=== PATIENT | male | born 1940 | race Caucasian/White ===

== ENCOUNTER 2024-06-19 19:06 | Inpatient (IN) | payer BC, MEDICARE ==
[~2024-06-19] VITALS: Ht 177.8 cm; Wt 99.4 kg
[2024-06-19] MEDS: 0.9% SODIUM CHLORIDE 10 ML SYRINGE IVP PRN (19:41)
[2024-06-19] MEDS: CefTRIAXone 1 GM/DEXTROSE 50 ML IV ONE (19:44)
[2024-06-19] MEDS: SODIUM CHLORIDE 0.9% 1,800 ML IV ONE (19:45)
[2024-06-19 19:56] LABS: BASOPHILS % (AUTO) 0.3 % (0.0-2.0); EOSINOPHILS % (AUTO) 0.7 % (1.0-6.0); HEMATOCRIT 44.9 % (41-53); HEMOGLOBIN 14.6 g/dL (13.5-17.5); LYMPHOCYTES # (AUTO) 1.1 K/uL (1.0-4.8); LYMPHOCYTES % (AUTO) 8.8 % (22.0-44.0); MEAN CORPUSCULAR HEMOGLOBIN 30.6 pg (26.0-34.0); MEAN CORPUSCULAR HGB CONC 32.6 G/dL (31.0-37.0); MEAN CORPUSCULAR VOLUME 94 fL (80-100); MONOCYTES # (AUTO) 1.6 K/uL (0.1-1.0); MONOCYTES % (AUTO) 13.4 % (2.0-9.0); NEUTROPHILS # (AUTO) 9.3 K/uL (1.8-7.7); NEUTROPHILS % (AUTO) 76.8 % (40.0-70.0); PLATELET COUNT (AUTO) 191 K/uL (150-450); RED BLOOD CELL COUNT(AUTO) 4.79 MIL/uL (4.50-5.90); RED CELL DISTRIBUTION WIDTH 14.2 % (11.5-14.5); WHITE BLOOD COUNT (AUTO) 12.1 K/uL (4.5-11.0)
[2024-06-19 20:05] LABS: ANION GAP 11 mmol/L (8-16); CALCIUM, TOTAL 9.4 mg/dL (8.8-10.5); CARBON DIOXIDE 27 mmol/L (22-29); CHLORIDE 102 mmol/L (98-107); CREATININE 2.42 mg/dL (0.60-1.30); GLOMERULAR FILTR. RATE CALC 26 mL/min (>60); GLUCOSE,RANDOM 112 mg/dL (70-110); POTASSIUM 4.4 mmol/L (3.5-5.1); PROTHROMBIN TIME 10.9 SEC (9.4-11.6); SODIUM SERUM 140 mmol/L (136-145); UREA NITROGEN, BLOOD 29 mg/dL (7-18)
[2024-06-19 20:11] LABS: ALANINE AMINOTRANSFERASE 29 U/L (12-78); ALBUMIN 3.7 g/dL (3.4-5.0); ALKALINE PHOSPHATASE 81 U/L (46-116); ASPARTATE AMINOTRANSFERASE 20 U/L (15-37); BILIRUBIN,TOTAL 0.8 mg/dL (0.1-1.0); TOTAL PROTEIN, SERUM 8.5 g/dL (6.4-8.2)
[2024-06-19 20:12] LABS: TROPONIN I-HIGH SENSITIVITY 18 ng/L (<76)
[2024-06-19 20:13] LABS: LACTIC ACID 0.8 mmol/L (0.4-2.0)
[2024-06-19 20:48] LABS: APPEARANCE,URINE CLEAR (CLEAR); BILIRUBIN,URINE NEGATIVE (NEGATIVE); COLOR,URINE LIGHT YELLOW (YELLOW); GLUCOSE, URINE (UA) NEGATIVE (NEGATIVE); KETONES,URINE NEGATIVE (NEGATIVE); LEUKOCYTE ESTERASE ,URINE NEGATIVE (NEGATIVE); NITRATE,URINE NEGATIVE (NEGATIVE); OCCULT BLOOD,URINE TRACE (NEGATIVE); PH,URINE 5.5 (5.0-8.0); PROTEIN,URINE 100-200,SEE CONFIRM mg/dL (NEGATIVE); SPECIFIC GRAVITIY, URINE 1.022 (1.003-1.030); UROBILINOGEN,URINE <=1.0 mg/dL (<=1.0)
[2024-06-19 21:21] LABS: BACTERIA,URINE None Seen /HPF (None Seen); RBC,URINE 0-2 /HPF (0-2); SULFOSALICYLIC ACID,URINE 3+ (Negative); WBC,URINE None Seen /HPF (0-5)
[2024-06-19 21:23] LABS: COVID AG,FIA SOURCE NASAL SWAB
[2024-06-19 21:48] LABS: INFLUENZA TYPE A NEGATIVE FOR TYPE A (NEGATIVE); INFLUENZA TYPE B NEGATIVE FOR TYPE B (NEGATIVE)
[2024-06-19 22:14] LABS: SARS-COV2 (COVID) ANTIGEN,FIA Positive (Negative)
[2024-06-19] MEDS ORDERED: HYDROCODONE/ACETAMINOPHEN 5-325 MG TABLET PO PRN (22:30)
[2024-06-19] MEDS ORDERED: BISACODYL 10 MG RECTAL RECTAL SUPPOSITORY PR PRN (22:30)
[2024-06-19] MEDS ORDERED: MAGNESIUM HYDROXIDE SUSPENSION 30 ML UDCUP PO PRN (22:30)
[2024-06-19] MEDS ORDERED: ZOLPIDEM TARTRATE 5 MG TABLET PO PRN (22:30)
[2024-06-19] MEDS ORDERED: ONDANSETRON HCL 4 MG/2 ML VIAL IVP PRN (22:30)
[2024-06-19] MEDS: AZITHROMYCIN 500 MG/NS 250 ML IV ONE (22:55)
[2024-06-19] MEDS: REMDESIVIR 200 MG in SODIUM CHLORIDE 0.9% 250 ML IV ONE (23:02)
[2024-06-19] MEDS: HEPARIN SODIUM,PORCINE 5,000 UNITS/ML VIAL SQ SCH (23:57)
[2024-06-20] VITALS (7 sets, daily range): BP systolic 126–159; BP diastolic 58–91; PULSE 57–81; RESP 17–19; TEMP 97.8–100.1; O2SAT 95–96
[2024-06-20] MEDS: ACETAMINOPHEN 325 MG TABLET PO PRN (04:40)
[2024-06-20 07:46] LABS: BASOPHILS % (AUTO) 0.3 % (0.0-2.0); EOSINOPHILS % (AUTO) 0.2 % (1.0-6.0); HEMOGLOBIN 13.1 g/dL (13.5-17.5); LYMPHOCYTES # (AUTO) 0.6 K/uL (1.0-4.8); LYMPHOCYTES % (AUTO) 5.6 % (22.0-44.0); MEAN CORPUSCULAR HEMOGLOBIN 31.5 pg (26.0-34.0); MEAN CORPUSCULAR HGB CONC 33.6 G/dL (31.0-37.0); MEAN CORPUSCULAR VOLUME 94 fL (80-100); MONOCYTES # (AUTO) 1.5 K/uL (0.1-1.0); MONOCYTES % (AUTO) 13.1 % (2.0-9.0); NEUTROPHILS # (AUTO) 9.1 K/uL (1.8-7.7); NEUTROPHILS % (AUTO) 80.8 % (40.0-70.0); PLATELET COUNT (AUTO) 142 K/uL (150-450); RED BLOOD CELL COUNT(AUTO) 4.17 MIL/uL (4.50-5.90); RED CELL DISTRIBUTION WIDTH 14.1 % (11.5-14.5); WHITE BLOOD COUNT (AUTO) 11.3 K/uL (4.5-11.0)
[2024-06-20 07:52] LABS: CALCIUM, TOTAL 8.5 mg/dL (8.8-10.5); CREATININE 2.17 mg/dL (0.60-1.30); POTASSIUM 4.1 mmol/L (3.5-5.1)
[2024-06-20] MEDS: PANTOPRAZOLE SODIUM 40 MG DR TABLET PO SCH (08:33)
[2024-06-20] MEDS: DOCUSATE SODIUM 100 MG CAPSULE PO SCH (08:33)
[2024-06-20] MEDS: DEXAMETHASONE 4 MG TABLET PO SCH (08:33)
[2024-06-20] MEDS ORDERED: SODIUM CHLORIDE 0.9% 1,000 ML ONE (21:00)
[2024-06-20] MEDS: REMDESIVIR 100 MG in SODIUM CHLORIDE 0.9% 250 ML IV SCH (21:02)
[2024-06-21] VITALS: BP 147/82; PULSE 66; RESP 16; TEMP 98.2; O2SAT 96
[2024-06-21 04:00] VITALS: BP 125/69; PULSE 59; RESP 18; TEMP 97.7; O2SAT 95
[2024-06-21 07:05] LABS: BASOPHILS % (AUTO) 0.1 % (0.0-2.0); EOSINOPHILS % (AUTO) 0 % (1.0-6.0); HEMATOCRIT 40.9 % (41-53); HEMOGLOBIN 13.2 g/dL (13.5-17.5); LYMPHOCYTES # (AUTO) 1.5 K/uL (1.0-4.8); LYMPHOCYTES % (AUTO) 9.7 % (22.0-44.0); MEAN CORPUSCULAR HEMOGLOBIN 30.3 pg (26.0-34.0); MEAN CORPUSCULAR HGB CONC 32.2 G/dL (31.0-37.0); MEAN CORPUSCULAR VOLUME 94 fL (80-100); MONOCYTES # (AUTO) 1.1 K/uL (0.1-1.0); MONOCYTES % (AUTO) 7.4 % (2.0-9.0); NEUTROPHILS # (AUTO) 12.5 K/uL (1.8-7.7); NEUTROPHILS % (AUTO) 82.8 % (40.0-70.0); PLATELET COUNT (AUTO) 172 K/uL (150-450); RED BLOOD CELL COUNT(AUTO) 4.35 MIL/uL (4.50-5.90); WHITE BLOOD COUNT (AUTO) 15.1 K/uL (4.5-11.0)
[2024-06-21 07:23] LABS: ALBUMIN 2.8 g/dL (3.4-5.0); BILIRUBIN,TOTAL 0.4 mg/dL (0.1-1.0); CREATININE 1.78 mg/dL (0.60-1.30); POTASSIUM 5.2 mmol/L (3.5-5.1); TOTAL PROTEIN, SERUM 6.8 g/dL (6.4-8.2)
[2024-06-21 08:00] VITALS: BP 154/74; PULSE 58; RESP 18; TEMP 97.8; O2SAT 98
[2024-06-21 12:00] VITALS: BP 160/92; PULSE 62; RESP 18; TEMP 97.6; O2SAT 98
[2024-06-21] MEDS: AmLODIPine BESYLATE 5 MG TABLET PO SCH (13:12)
[2024-06-21] MEDS: SODIUM POLYSTYRENE SULFONATE 15 GM/60 ML SUSPENSION BOTTLE PO ONE (13:12)
[2024-06-21 16:00] VITALS: BP 150/70; PULSE 62; RESP 18; TEMP 97.9; O2SAT 97
[2024-06-21 20:00] VITALS: BP 155/68; PULSE 73; RESP 18; TEMP 98.1; O2SAT 96
[2024-06-22] VITALS: BP 149/80; PULSE 64; RESP 16; TEMP 98.4; O2SAT 96
[2024-06-22 04:00] VITALS: BP 139/75; PULSE 69; RESP 17; TEMP 97.9; O2SAT 95
[2024-06-22 06:16] LABS: HEMATOCRIT 40.1 % (41-53); HEMOGLOBIN 13.2 g/dL (13.5-17.5); MEAN CORPUSCULAR VOLUME 94 fL (80-100); PLATELET COUNT (AUTO) 178 K/uL (150-450); RED BLOOD CELL COUNT(AUTO) 4.26 MIL/uL (4.50-5.90); RED CELL DISTRIBUTION WIDTH 13.7 % (11.5-14.5); WHITE BLOOD COUNT (AUTO) 19.9 K/uL (4.5-11.0)
[2024-06-22 07:30] LABS: ALBUMIN 2.8 g/dL (3.4-5.0); BILIRUBIN,TOTAL 0.3 mg/dL (0.1-1.0); CALCIUM, TOTAL 8.7 mg/dL (8.8-10.5); CREATININE 1.93 mg/dL (0.60-1.30); POTASSIUM 4.7 mmol/L (3.5-5.1); TOTAL PROTEIN, SERUM 6.6 g/dL (6.4-8.2)
[2024-06-22 08:00] VITALS: BP 161/66; PULSE 57; RESP 18; TEMP 98.2; O2SAT 98
[2024-06-22 08:05] LABS: BAND NEUTROPHILS % (MANUAL) 2 % (0-5); EOSINOPHILS % (MANUAL) 1 % (1-6); LYMPHOCYTES % (MANUAL) 10 % (22-44); MONOCYTES % (MANUAL) 7 % (2-9); RBC MORPHOLOGY COMMENT NORMAL RBC MORPH; SEGMENTED NEUTROPHILS % 80 % (40-70); TOTAL CELLS COUNTED 100
[2024-06-22] MEDS: HYDROCODONE/ACETAMINOPHEN 5-325 MG TABLET PO PRN (08:32)
[2024-06-22] MEDS: MORPHINE SULFATE 2 MG/ML SYRINGE IVP PRN (09:13)
[2024-06-22 11:54] VITALS: BP 147/68; PULSE 58; RESP 18; TEMP 97.8; O2SAT 97
[2024-06-22] MEDS: SODIUM CHLORIDE 0.9% 1,000 ML IV ONE (12:30)
[2024-06-22 16:44] VITALS: BP 137/75; PULSE 59; RESP 18; TEMP 97.5; O2SAT 95
[2024-06-22 20:45] VITALS: BP 147/80; PULSE 62; RESP 18; TEMP 97.8; O2SAT 94
[2024-06-23] VITALS (7 sets, daily range): BP systolic 124–152; BP diastolic 60–88; PULSE 47–65; RESP 17–19; TEMP 97.8–98.4; O2SAT 94–96
[2024-06-23 06:47] LABS: CREATININE 1.93 mg/dL (0.60-1.30); POTASSIUM 4.7 mmol/L (3.5-5.1)
[2024-06-23 06:48] LABS: ALBUMIN 2.8 g/dL (3.4-5.0); BILIRUBIN,TOTAL 0.3 mg/dL (0.1-1.0); CALCIUM, TOTAL 8.7 mg/dL (8.8-10.5); TOTAL PROTEIN, SERUM 6.6 g/dL (6.4-8.2)
[2024-06-23 17:06] LABS: APPEARANCE,URINE CLEAR (CLEAR); BILIRUBIN,URINE NEGATIVE (NEGATIVE); COLOR,URINE LIGHT YELLOW (YELLOW); GLUCOSE, URINE (UA) 150-200 mg/dL (NEGATIVE); KETONES,URINE NEGATIVE (NEGATIVE); LEUKOCYTE ESTERASE ,URINE NEGATIVE (NEGATIVE); NITRATE,URINE NEGATIVE (NEGATIVE); OCCULT BLOOD,URINE NEGATIVE (NEGATIVE); PROTEIN,URINE 30-70 mg/dL (NEGATIVE); SPECIFIC GRAVITIY, URINE 1.012 (1.003-1.030); UROBILINOGEN,URINE <=1.0 mg/dL (<=1.0)
[2024-06-23 17:07] LABS: PROTEIN,URINE RANDOM 50 mg/dL (0-11.9); SODIUM,URINE RANDOM 71 mmol/l (20-110); UREA NITROGEN,URINE RANDOM 572 mg/dL (350-1000)
[2024-06-23 17:17] LABS: BACTERIA,URINE None Seen /HPF (None Seen); RBC,URINE None Seen /HPF (0-2); SQUAMOUS EPITHELIAL CELL,UR None Seen /LPF (None Seen); WBC,URINE None Seen /HPF (0-5)
[2024-06-24 04:53] VITALS: BP 145/52; PULSE 50; RESP 18; TEMP 97.7; O2SAT 94
[2024-06-24 07:37] LABS: HEMATOCRIT 43.7 % (41-53); HEMOGLOBIN 14.3 g/dL (13.5-17.5); MEAN CORPUSCULAR HEMOGLOBIN 30.5 pg (26.0-34.0); MEAN CORPUSCULAR HGB CONC 32.7 G/dL (31.0-37.0); MEAN CORPUSCULAR VOLUME 93 fL (80-100); PLATELET COUNT (AUTO) 194 K/uL (150-450); RED BLOOD CELL COUNT(AUTO) 4.69 MIL/uL (4.50-5.90); RED CELL DISTRIBUTION WIDTH 13.9 % (11.5-14.5); WHITE BLOOD COUNT (AUTO) 16.8 K/uL (4.5-11.0)
[2024-06-24 08:00] VITALS: BP 165/76; PULSE 66; RESP 18; TEMP 97.7; O2SAT 97
[2024-06-24 08:00] LABS: CALCIUM, TOTAL 8.9 mg/dL (8.8-10.5); CREATININE 2.02 mg/dL (0.60-1.30); POTASSIUM 4.4 mmol/L (3.5-5.1)
[2024-06-24 08:06] LABS: BAND NEUTROPHILS % (MANUAL) 5 % (0-5); EOSINOPHILS % (MANUAL) 1 % (1-6); LYMPHOCYTES % (MANUAL) 16 % (22-44); MONOCYTES % (MANUAL) 9 % (2-9); RBC MORPHOLOGY COMMENT NORMAL RBC MORPH; SEGMENTED NEUTROPHILS % 69 % (40-70); TOTAL CELLS COUNTED 100
== END 2024-06-24 15:16 | disposition home or self-care (01) | DRG 871 ==
LOC: EMS 19:06 → EDH 06-20 00:24 → 5N 06-20 01:38
PROVIDERS: ADMIT Internal Medicine; ATTEND Internal Medicine
PROC: XW033E5 Introduction of Remdesivir Anti-infective into Peripheral Vein, Percutaneous Approach, New Technology Group 5 (ICD-10-PCS; principal; 2024-06-19)
DX: A41.9 Sepsis, unspecified organism (principal); G93.41 Metabolic encephalopathy; U07.1 COVID-19; J12.82 Pneumonia due to coronavirus disease 2019; J96.01 Acute respiratory failure with hypoxia; N17.9 Acute kidney failure, unspecified; E87.5 Hyperkalemia; I12.9 Hypertensive chronic kidney disease with stage 1 through stage 4 chronic kidney disease, or unspecified chronic kidney disease; N18.9 Chronic kidney disease, unspecified; Z85.528 Personal history of other malignant neoplasm of kidney; Z90.5 Acquired absence of kidney
CPT/HCPCS: 70450; 71045; 76770; 80048; 80053; 81001; 81002; 82570; 83605; 83880; 84145; 84156; 84300; 84484; 84540; 85025; 85610; 87040; 87804; 93005; 97110; 97161; 97165; 99285; J0456; J0696; J1644; J2270; J7030; J7050; J8540; 36415-L1; 36415-TC